=== PATIENT | male | born 1990 | race Caucasian/White ===

== ENCOUNTER 2023-10-30 15:36 | Emergency (ER) | payer SELFPAY ==
[~2023-10-30] VITALS: Ht 172.7 cm; Wt 86.2 kg
[2023-10-30 15:45] VITALS: BP 151/88; PULSE 92; RESP 18; TEMP 98.6; O2SAT 98
== END 2023-10-30 16:10 | disposition home or self-care (01) ==
LOC: MED 15:36
DX: F10.129 Alcohol abuse with intoxication, unspecified (principal); Y90.9 Presence of alcohol in blood, level not specified
CPT/HCPCS: 99283